=== PATIENT | male | born 1975 | race Caucasian/White ===

== ENCOUNTER 2017-06-16 15:22 | Emergency (ER) | payer SELFPAY ==
[2017-06-16 15:24] VITALS: BP 129/72; PULSE 67; RESP 16; TEMP 36.7; O2SAT 97; BMI 25.1
--- NOTE | 2017-06-16 15:28 | RAD_ITS ---
STUDY: X-RAY - RIGHT ELBOW REASON FOR EXAM: Male, 41 years old. Pain following injury. TECHNIQUE: 3 view(s) of the elbow. COMPARISON: None. FINDINGS: Normal visualized humerus, radius and ulna. Normal radiocapitellar and ulnotrochlear articulations. The soft tissue structures are unremarkable. RAD/Elbow min 3 Views IMPRESSION: Normal x-ray examination of the elbow. Electronically Signed: Yao Coulter MD at 15:49 EST Tel [phone], Service support ,
--- NOTE | 2017-06-16 16:42 | ED.DCSUM_ITS ---
- ER Visit Summary Date of Service: 06/16/17 Chief Complaint: Right elbow pain History of Present Illness: The patient is a 41 M presenting for evaluation secondary to right elbow pain. Patient states last week he was painting, started to have a mild amount elbow pain, and then this weekend he and a friend attempted to lift an 800 pound woodstove. Patient states that now he has pain in his elbow with movement and palpation. Denies any fevers. Review of systems otherwise negative. Physical Examination: Examination of the patient's right upper extremity shows no pain of the shoulder arm forearm wrist or hand with normal range of motion of those joints. There is focal tenderness palpation over the lateral epicondyle. No joint effusion warmth or erythema. Normal flexion extension pronation and supination of the elbow. Normal distal pulses normal distal sensation Test Results: Right arm x-ray is negative Emergency Department Course and Treatment: Patient presented with lateral epicondyle pain in the setting of increased use of his arm. Patient likely has lateral epicondylitis. He will be given an Marcos wrap and NSAIDs, and was instructed to follow-up with his PCP. Disposition: Discharge Impression: 1. Lateral epicondylitis This note was generated with [employer] dictation software. It may contain incorrect words, spelling, and punctuation that were not noted in review of the chart prior to signing ED Disposition - Plan for ED Patient: Disposition: Home or Assisted Living Chief Complaint: Upper Extremity Injury Diagnosis: Lateral epicondylitis of elbow Instructions: ED Epicondylitis Lateral Elbow Prescriptions: Naproxen [Naprosyn] 500 mg PO BID PRN #20 tab Referrals: Abiodun Suarez [NON-STAFF] -
== END 2017-06-16 16:57 | disposition home or self-care (01) ==
LOC: ED 16:53
PROVIDERS: Emergency Provider Emergency Medicine
DX: M77.11 Lateral epicondylitis, right elbow (principal)
CPT/HCPCS: 73080; 99283

== ENCOUNTER 2017-12-01 16:25 | Emergency (ER) | payer SELFPAY ==
[2017-12-01 16:26] VITALS: BP 126/82; PULSE 99; RESP 18; TEMP 37; O2SAT 99; BMI 23.7
--- NOTE | 2017-12-01 17:20 | RAD_ITS ---
STUDY: X-RAY - RIGHT HAND REASON FOR EXAM: Male, 42 years old. Trauma TECHNIQUE: 3 view(s) of the hand. COMPARISON: None. FINDINGS: Normal radiocarpal articulation. Normal distal radioulnar joint. Normal visualized carpal bones. Normal carpal articulations Normal carpometacarpal articulation of the thumb. Normal second through fifth carpometacarpal joints. Acute mildly impacted comminute spiral fracture of the optimal shaft of the fifth metacarpal with mild overlapping of fracture fragments Normal metacarpophalangeal joint of the thumb. Normal interphalangeal joint of the thumb. Normal proximal and distal phalanges of the thumb. Normal metacarpophalangeal joints of the second through fifth fingers. Normal proximal and distal interphalangeal joints of the second through fifth fingers. Normal phalanges of the second through fifth fingers. The soft tissue structures are unremarkable. RAD/Hand Min 3 Views IMPRESSION: Acute mildly displaced fracture of the proximal shaft of the fifth metacarpal Electronically Signed: Fox Alcala MD at 18:13 EDT , Service support ,
[2017-12-01 18:23] VITALS: BP 116/97; PULSE 84; RESP 18
--- NOTE | 2017-12-01 18:24 | ED.VISSUMM ---
- ER Visit Summary Date of Service: 12/01/17 Chief Complaint: [Injury right hand] History of Present Illness: The patient is a 42 M [presents the emergency department with complaint of an injury to his right hand that occurred last night. Patient states that some he try to grab his keys and he hit them with his right hand against their hand and his ski belt. Patient's had swelling and decreased ability to extend the small finger. Patient is right-hand dominant.] Physical Examination: [Right hand-patient has diffuse soft tissue swelling over the dorsum of the right hand. Patient has tenderness over the fifth metacarpal. Patient has decreased ability to completely extend the small finger. No pain at the wrist.] Test Results: [X-rays of the right hand obtained showed a fracture of the base of the fifth metacarpal.] Emergency Department Course and Treatment: [Patient was placed in an ulnar gutter splint and given a sling] Treatment Plan: [Patient will be referred to orthopedics and given a prescription for [place] for pain] Disposition: [Discharged home in stable condition] Impression: [Right hand fracture fifth metacarpal] This note was generated with [employer] dictation software. It may contain incorrect words, spelling, and punctuation that were not noted in review of the chart prior to signing ED Disposition - Plan for ED Patient: Chief Complaint: Upper Extremity Injury Referrals: Abiodun Suarez MD [Primary Care Provider] -
--- NOTE | 2017-12-01 18:25 | ED.DEP ---
ED Disposition - Plan for ED Patient: Chief Complaint: Upper Extremity Injury Instructions: ED Fx Hand Closed Prescriptions: Hydrocodone/Acetaminophen [Dupree 5-325 Tablet] 1 ea PO 4X/DAY PRN PRN 5 Days #20 tab PRN Reason: Pain Referrals: Abiodun Suarez MD [Primary Care Provider] - Hever Wilson MD [STAFF PHYSICIAN] - 3-5 Days
--- NOTE | 2017-12-01 18:27 | DCINST.ED_ITS ---
ED Disposition - Plan for ED Patient: Chief Complaint: Upper Extremity Injury Instructions: ED Fx Hand Closed Prescriptions: Hydrocodone/Acetaminophen [Carefree 5-325 Tablet] 1 ea PO 4X/DAY PRN PRN 5 Days # 20 tab PRN Reason: Pain Referrals: Abiodun Suarez MD [Primary Care Provider] - Hever Wilson MD [STAFF PHYSICIAN] - 3-5 Days
== END 2017-12-01 18:33 | disposition home or self-care (01) ==
PROVIDERS: Emergency Provider Emergency Medicine
DX: S62.316A Displaced fracture of base of fifth metacarpal bone, right hand, initial encounter for closed fracture (principal); Z72.0 Tobacco use; Y04.2XXA Assault by strike against or bumped into by another person, initial encounter; Y93.89 Activity, other specified; Y92.89 Other specified places as the place of occurrence of the external cause; Y99.8 Other external cause status
CPT/HCPCS: 29125; 73130; 99282

== ENCOUNTER 2021-03-28 23:38 | Emergency (ER) | payer SELFPAY ==
[2021-03-28 23:39] VITALS: BP 130/106; PULSE 102; RESP 16; TEMP 36.3; O2SAT 97; BMI 25.7
[2021-03-29] MEDS: Ondansetron ODT 4 MG Tablet PO (00:53)
[2021-03-29] MEDS: Orphenadrine 60 MG/2 ML Ampul IM (00:53)
[2021-03-29] MEDS: HYDROmorphone 1 MG/ML Syringe IM (00:53)
--- NOTE | 2021-03-29 01:49 | EDS_ITS ---
HPI History of Present Illness Chief Complaint: Back Narrative Narrative: Patient is a 45-year-old male who states that he was bending down to pick something up when he developed pain in his bilateral low back. He states he then went to the chiropractor who adjusted him. He states that he then went to sampler pickup a few pieces of wood for his wood stove and when he did this he had spasm and pain in his low back. He states it is to the point where he is having difficulty moving secondary to the pain and spasm and therefore comes in for evaluation. The patient denies any loss of bowel or bladder control or IV drug use PFSH PFSH Medical History no medical history Home Medications methocarbamol 1,000 mg PO Q6H PRN #56 tab 03/29/21 [Rx Last Taken Unknown] oxycodone-acetaminophen [Percocet] 1 tab PO Q6H PRN 3 Days #12 tab 03/29/21 [Rx Last Taken Unknown] Allergy/AdvReac Type Severity Reaction Status Date / Time No Known Allergies Allergy Verified 03/28/21 23:40 Social History Smoking Status: Current every day smoker tobacco type: cigarettes ROS ROS ED Constitutional Constitutional ED: Denies chills or fever(s) ENT ENT ED: Denies sore throat Cardiovascular Cardiovascular: Denies chest pain Respiratory/Chest Respiratory/Chest: Denies cough or dyspnea Gastrointestinal Gastrointestinal: Denies abdominal pain, diarrhea, nausea or vomiting Genitourinary Genitourinary ED: Denies dysuria or hematuria Musculoskeletal Musculoskeletal: Reports back pain; Denies myalgias Integumentary Denies rash Neurologic Neurologic: Denies headache(s) Hematologic/Lymphatic Hematologic/Lymphatic: Denies easy bleeding or easy bruising EXAM Physical Exam Const Vital Signs: 03/28/21 23:39 03/29/21 02:05 Temperature 97.4 F L Temperature Source Temporal Pulse Rate 102 H 72 Respiratory Rate 16 16 Blood Pressure 130/106 H 128/88 H Blood Pressure Mean 114 Pulse Ox 97 96 Oxygen Delivery Method Room Air Positive well nourished and well developed General Appearance ED: well developed Eyes PERRL and EOMs intact bilaterally Neck supple Resp normal respiratory effort and clear to auscultation bilaterally Cardio regular rate and regular rhythm Rate: other Other Details: Radial pulses are +2-4 bilaterally are equal and symmetric GI normal to inspection, nondistended, normoactive bowel sounds, non-tender, non- distended and no masses GI Narrative: No voluntary guarding or rigidity no pulsatile mass Auscultation: normoactive bowel sounds Palpation: soft Back/Spine Back/Spine Narrative: No bony deformity or step-off of the thoracic or lumbar spine no midline pain with palpation. Patient does have bilateral paralumbar tension and spasm noted that worsens with flexion extension and rotation. No saddle anesthesia. Negative straight leg raise. No clonus or Babinski. Patellar reflexes are +2-4 bilaterally. Extremity normal to inspection Neuro oriented x3 and CN's II-XII intact bilaterally Sensorium / Orientation: alert Psych mental status grossly normal Skin no rashes or lesions noted MDM MDM MDM Narrative Medical decision making narrative: Patient presented to the ER hypertensive but also had no report or signs of trauma and is low risk for cauda equina or epidural abscess as he does not report loss of bowel or bladder control or IV drug use. Therefore at this time I felt no need for work-up other than treating the symptoms. Patient was given IM Dilaudid and Norflex and on reevaluation reported feeling much better and is able to walk around the room. Therefore at this time as history and exam is most consistent with lumbosacral strain and spa sm I will place him on symptomatic medications as his pain has been improved and he is safe for discharge Discharge Plan Triage Chief Complaint: Back ED Provider: Himanshu Gillespie Dx/Rx/DC Orders Clinical Impression: Acute lumbosacral myofascial strain Instructions: ED Back Spasm, No Trauma, ED Back Sprain/Strain Prescriptions: New oxycodone-acetaminophen [Percocet] 5-325 mg tablet 1 tab PO Q6H PRN (Reason: pain) 3 Days Qty: 12 RF: 0 methocarbamol 500 mg tablet 1,000 mg PO Q6H PRN (Reason: Muscle pain/spasm) Qty: 56 RF: 0 Primary Care Provider: Abiodun Suarez Referrals: Abiodun Suarez MD [Primary Care Provider] - Disposition Disposition: Home, Self Care Discharge Date/Time: 03/29/21 02:06
[2021-03-29 02:05] VITALS: BP 128/88; PULSE 72; RESP 16; O2SAT 96
== END 2021-03-29 02:06 | disposition home or self-care (01) ==
PROVIDERS: Emergency Provider Emergency Medicine
DX: S39.012A Strain of muscle, fascia and tendon of lower back, initial encounter (principal); F17.210 Nicotine dependence, cigarettes, uncomplicated; X50.1XXA Overexertion from prolonged static or awkward postures, initial encounter; Y93.89 Activity, other specified; Y92.009 Unspecified place in unspecified non-institutional (private) residence as the place of occurrence of the external cause; Y99.8 Other external cause status
CPT/HCPCS: 96372; 99283

== ENCOUNTER → 2022-04-08 | Outpatient (CLI) | payer SELFPAY ==
--- NOTE | 2022-04-08 13:05 | RAD_ITS ---
EXAM: XR LUMBOSACRAL SPINE, 2 OR 3 VIEWS CLINICAL INDICATION: PAIN TECHNIQUE: Frontal and lateral views of the lumbar spine and sacrum. This report was created using [employer] report generation technology. COMPARISON: Abdominal radiographs of 01/01/2017. FINDINGS: VERTEBRAE: Preserved vertebral body height. No fracture. No spondylolisthesis. Preservation of the normal lumbar lordosis. Mild lower lumbar facet arthritis. Lumbar transverse processes and pedicles are intact. DISC SPACES: Disc spaces are maintained. Minimal degenerative spurring about the mid to lower lumbar disc spaces. GASTROINTESTINAL TRACT: Unremarkable as visualized. Included bowel gas pattern is non-obstructive. OTHER: The visualized lower ribs are intact. SI joints are unremarkable. RAD/L/S Spine Min 4 Views IMPRESSION: Minimal lumbar degenerative spurring with lower lumbar facet arthritis. No evidence of lumbar spinal fracture or spondylolisthesis. Electronically Signed: Kiran Corcoran MD at 23:58 EST ,
== END | disposition home or self-care (01) ==
PROVIDERS: PCP Family Medicine; Visit Provider Family Medicine
DX: M54.50 Low back pain, unspecified (principal); G89.29 Other chronic pain
CPT/HCPCS: 72110